=== PATIENT | male | born 1955 | race African-American/Black ===

== ENCOUNTER 2018-12-02 01:44 | Emergency (ER) | payer OTHER, BC ==
[~2018-12-02] VITALS: Ht 177.8 cm; Wt 95.3 kg
[~2018-12-02 01:44] MED LIST: IBUPROFEN 800800 MG PO; MUCINEX COLD L118 ML; PHENERGAN 25 MG25 M1 PO
[2018-12-02 02:05] LABS: ABSOLUTE NEUTROPHILS 7.2 thou/uL (1.4-8.2); BASOPHILS 0.3 % (0.0-2.0); EOSINOPHILS 0.2 % (0.0-3.0); HEMATOCRIT 47.3 % (42.0-52.0); HEMOGLOBIN 15.4 gm/dL (14.0-18.0); LYMPHOCYTES 11.7 % (24.0-44.0); MCH 29.8 pg (26.0-34.0); MCHC 32.5 g/dL (28.0-37.0); MCV 91.7 fL (80.0-100.0); MONOCYTES 2.4 % (1.0-8.0); PLATELET COUNT 219 thou/uL (150-400); POLYS 85.4 % (36.0-66.0); RBC 5.15 mil/uL (4.50-6.00); RDW 14.6 % (10.5-14.5); WBC 8.4 thou/uL (4.0-11.0)
[2018-12-02 02:10] LABS: CALCIUM 8.7 mg/dL (8.5-10.1); CREATININE 1.6 mg/dL (0.7-1.3); POTASSIUM 3.8 mmol/L (3.5-5.1)
[2018-12-02 02:10] LABS: URINE BILIRUBIN NEGATIVE (Negative); URINE BLOOD NEGATIVE (Negative); URINE CLARITY CLEAR; URINE COLOR YELLOW; URINE GLUCOSE-RANDOM* NEGATIVE (Negative); URINE KETONES NEGATIVE (Negative); URINE LEUKOCYTES NEGATIVE (Negative); URINE NITRITE NEGATIVE (Negative); URINE PROTEIN (DIPSTICK) NEGATIVE (Negative); URINE UROBILINOGEN 0.2 E.U./dl (0.2-1.0)
[2018-12-02 02:23] LABS: ALBUMIN 3.9 g/dL (3.4-5.0); TOTAL BILIRUBIN 0.5 mg/dL (<0.1-1.0); TOTAL PROTEIN 8.2 g/dL (6.4-8.2)
[2018-12-02] MEDS ORDERED: ZOFRAN ODT4 MG PO (02:51)
[2018-12-02] MEDS ORDERED: BENTYL 20 MG TA20 M1 PO (02:51)
[2018-12-02] MEDS ORDERED: NORCO 5-325 TA1 EACH PO (02:51)
[2018-12-02] MEDS ORDERED: LOPERAMIDE 2 MG2 M1 PO (02:51)
[2018-12-02 03:14] VITALS: BP 119/91
== END 2018-12-02 03:21 | disposition home or self-care (01) ==
LOC: EDBD 01:44 → ER 01:44
PROVIDERS: Emergency Medicine
DX: K52.9 Noninfective gastroenteritis and colitis, unspecified (principal); I10 Essential (primary) hypertension; E78.5 Hyperlipidemia, unspecified; E78.00 Pure hypercholesterolemia, unspecified